=== PATIENT | female | born 1960 | race Hispanic/Latino ===

== ENCOUNTER 2020-09-26 09:36 | Day surgery (SDC) | payer BC ==
--- NOTE | 2020-09-26 10:17 | Anesthesia Day of Surgery ---
Anesthesia Day of Surgery - Day of Surgery Patient Examined: Yes Patient H&P Reviewed: Yes Patient is NPO: Yes Cardiac Clearance: Yes (Medical Clearance)
[2020-09-26] MEDS ORDERED: HYDROmorphone 1 MG/1 ML INJ IV PRN ×2 (10:20)
[2020-09-26] MEDS ORDERED: ONDANSETRON 4 MG/2 ML INJ IV PRN (10:20)
--- NOTE | 2020-09-26 10:20 | Anesthesia Consultation ---
Anesthesia Consult and Med Hx Date of service: 09/26/20 - Airway Anesthetic Teeth Evaluation: Crowns, Bridges ROM Head & Neck: Adequate Mental/Hyoid Distance: Adequate Mallampati Class: Class III Intubation Access Assessment: Probably Good - Pre-Operative Health Status ASA Pre-Surgery Classification: ASA2 Proposed Anesthetic Plan: General - Pre-Anesthesia Comment Pre-Anesthesia Comments: +Medical clearance - Pulmonary Hx Respiratory Symptoms: No (+2FS) - Cardiovascular System Hx Hypertension: Yes (Slightly elevated, not treated) - Central Nervous System Hx Psychiatric Problems: No - Gastrointestinal Hx Gastroesophageal Reflux Disease: No - Endocrine Hx Renal Disease: No Hx Liver Disease: Yes (Increased ALT; ?fatty liver) Hx Non-Insulin Dependent Diabetes: Yes (Borderline) Hx Thyroid Disease: No - Other Systems Hx Alcohol Use: Yes (Occas) Hx Cancer: No Hx Obesity: Yes
[2020-09-26] MEDS ORDERED: LACTATED RINGERS 1,000 ML IV SCH (10:30)
[2020-09-26] MEDS ORDERED: MIDAZOLAM 2 MG/2 ML INJ IV NR (11:00)
[2020-09-26] MEDS ORDERED: propofoL 200 MG/20 ML VIAL IV ONE (12:05)
[2020-09-26] MEDS ORDERED: ONDANSETRON 4 MG/2 ML INJ ONE (12:05)
[2020-09-26] MEDS ORDERED: LIDOCAINE MPF (2%) 20 MG/1 ML VIAL 5 ML ONE (12:05)
[2020-09-26] MEDS ORDERED: dexAMETHasone 20 MG/5 ML VIAL ONE (12:05)
[2020-09-26] MEDS ORDERED: fentaNYL 100 MCG/2 ML INJ ONE (12:05)
[2020-09-26] MEDS ORDERED: KETOROLAC 30 MG/1 ML INJ ONE (12:57)
[2020-09-26] MEDS ORDERED: LACTATED RINGERS 1,000 ML ONE (12:57)
[2020-09-26] MEDS ORDERED: PHENYLEPHRINE/NS 1,000 MCG/10 ML SYRINGE (OR USE) IV ONE (13:00)
[2020-09-26] MEDS ORDERED: SODIUM CHLORIDE 0.9% IRRIG SOLN 3000 ML IR ONE (13:02)
[2020-09-26 13:26] VITALS: BP 124/63
--- NOTE | 2020-09-26 14:02 | Operative Report ---
Operative Report Operative Report: Preoperative diagnosis: 1. Postmenopausal bleeding. 2. Thickened endometrium. Postoperative diagnosis: 1. Postmenopausal bleeding. 2. Thickened endometrium. 3. Endometrial polyps. Procedure: 1. Hysteroscopy. 2. D&C 3. Endometrial polypectomy. Surgeon: Dr. Zhao Crew Team Member: none Anesthesia: General. EBL: minimal IVF: RL 1 liter Complications: none Procedure details: The risks, benefits, and alternatives of the procedure were discussed in detail with the patient which included but not limited to infection, hemorrhage requiring a, and uterine perforation. The patient expressed understanding, her questions answered, and she gave informed consent. The patient was taken to the operating room with an IVF infusing Ringer's lactate. In the operating room, she was placed in the dorsal supine position and given general anesthesia. Then, she was placed on the stirrups in a dorsal lithotomy position. The perineum vagina and cervix were washed and she was prepared and draped in the usual sterile fashion. Examination under anesthesia revealed normal external genitalia and vagina. The cervix was closed, long, posterior. The uterus was 8-week size, anteverted, and mobile. The adnexae were nonpalpable. A weighted speculum was placed placed on the posterior vaginal wall. The anterior lip of the cervix was grasped with a single-tooth tenaculum. Endocervical curettage was done. The cervical os was dilated and the hysteroscope was introduced into the uterine cavity. It revealed thickened endometrial lining with multiple small polyps. The ostia were not visualized. The hysteroscope was removed from the uterine cavity. A gentle curettage was performed and polyps were removed until a gritty texture was noticed. The specimen which consisted of ECC, EMC and endometrial polyps was sent to pathology. The instruments were removed from the cervix and vagina. The count of laps, needles, sponges, and instrument were correct 2. The patient tolerated the procedure well. She was awakened from the anesthesia and taken to the recovery room in a stable condition.
--- NOTE | 2020-09-26 14:36 | Post Anesthesia Evaluation ---
- Post Anesthesia Evaluation Patient Participated: Yes Airway Patent: Yes Stable Respiratory Function: Yes Nausea/Vomiting: No Temp > 96.8F: Yes Pain Manageable: Yes Adequeate Hydration: Yes Anesthesia Complications: No Block Receding Appropriately: Not Applicable Patient on Ventilator: No
== END 2020-09-26 09:37 | disposition home or self-care (01) ==
LOC: OR 09:36
PROVIDERS: ATTEND Obstetrics & Gynecology
DX: N95.0 Postmenopausal bleeding (principal); R93.89 Abnormal findings on diagnostic imaging of other specified body structures; N84.0 Polyp of corpus uteri; G43.909 Migraine, unspecified, not intractable, without status migrainosus; I10 Essential (primary) hypertension; E66.9 Obesity, unspecified; E11.9 Type 2 diabetes mellitus without complications; Z72.89 Other problems related to lifestyle; Z90.49 Acquired absence of other specified parts of digestive tract; Z88.0 Allergy status to penicillin; Z98.49 Cataract extraction status, unspecified eye; Z98.890 Other specified postprocedural states; Z68.34 Body mass index [BMI] 34.0-34.9, adult; Z17.1 Estrogen receptor negative status [ER-]
CPT/HCPCS: 58558; 88305; 88341; 88342; A4217; J1100; J1885; J2250; J2370; J2405; J2704; J3010; J7120